=== PATIENT | male | born 1990 | race Caucasian/White ===

== ENCOUNTER 2019-06-01 11:23 | Emergency (ER) | payer OTHER ==
[~2019-06-01] VITALS: Ht 170.2 cm; Wt 77.3 kg
[2019-06-01 11:32] VITALS: BP 126/70
[2019-06-01] MEDS ORDERED: RITALIN10 MG PO (11:45)
[2019-06-01] MEDS ORDERED: ZONEGRAN50 MG PO (11:46)
[2019-06-01] MEDS ORDERED: MAXALT10 MG PO (11:46)
[2019-06-01] MEDS ORDERED: CRUTCHES MC (12:13)
[2019-06-01 13:17] VITALS: PULSE 73; TEMP 98.3
== END 2019-06-01 13:15 | disposition home or self-care (01) ==
LOC: COL.ER 11:23
DX: S82.892A Other fracture of left lower leg, initial encounter for closed fracture (principal); S60.511A Abrasion of right hand, initial encounter; W01.0XXA Fall on same level from slipping, tripping and stumbling without subsequent striking against object, initial encounter; X50.1XXA Overexertion from prolonged static or awkward postures, initial encounter; Y92.410 Unspecified street and highway as the place of occurrence of the external cause
CPT/HCPCS: Q4045